=== PATIENT | female | born 1985 | race Caucasian/White ===

== ENCOUNTER → 2017-03-16 | Outpatient (CLI) | payer OTHER ==
[2017-03-16 10:56] LABS: ABSOLUTE EOSINOPHILS # (AUTO) 0.1 10^3/uL (0.0-0.6); ABSOLUTE LYMPHOCYTES (AUTO) 1.6 10^3/uL (0.5-4.7); ABSOLUTE MONOCYTES (AUTO) 0.6 10^3/uL (0.1-1.4); ABSOLUTE NEUT (AUTO) 3.9 10^3/uL (1.7-8.2); BASOPHILS % (AUTO) 0.7 % (0-2); EOSINOPHILS % (AUTO) 1.7 % (0-6); HEMATOCRIT 40.7 % (36.0-47.0); LYMPHOCYTES % (AUTO) 26.5 % (13-45); MEAN CORPUSCULAR HEMOGLOBIN 31.6 pg (27.0-33.4); MEAN CORPUSCULAR HGB CONC 34.5 g/dL (32.0-36.0); MEAN CORPUSCULAR VOLUME 91 fl (80-97); MONOCYTES % (AUTO) 9.1 % (3-13); PLATELET COUNT 283 10^3/uL (150-450); RED BLOOD COUNT 4.45 10^6/uL (3.72-5.28); RED CELL DISTRIBUTION WIDTH 13.5 % (11.5-14.0); TOTAL CELLS COUNTED % (AUTO) 100 %; WHITE BLOOD COUNT 6.2 10^3/uL (4.0-10.5)
[2017-03-16 11:29] LABS: URIC ACID 5.4 mg/dL (2.5-6.2)
[2017-03-16 11:32] LABS: C-REACTIVE PROTEIN < 5.0 mg/L (<10.0)
[2017-03-16 11:48] LABS: ERYTHROCYTE SEDIMENTATION RATE 12 mm/hr (0-20)
[2017-03-18 08:26] LABS: CYCLIC CITRUL PEPTIDE IGG/A AB 4 units (0-19)
== END ==
LOC: OD 09:46
PROVIDERS: ATTEND Physician Assistant
DX: M79.642 Pain in left hand (principal); R60.9 Edema, unspecified; M25.50 Pain in unspecified joint
CPT/HCPCS: 36415; 84443; 84550; 85025; 85652; 86038; 86140; 86200

== ENCOUNTER → 2017-03-16 | Outpatient (CLI) | payer OTHER ==
--- NOTE | 2017-03-18 10:14 | RADIOLOGY REPORT (SQ) ---
EXAM DESCRIPTION: MRI LT UPPER EXTREMITY WITHOUT COMPLETED DATE/TIME: 03/16/2017 11:07 am REASON FOR STUDY: M79.642 PAIN INLEFT HAND M79.642 PAIN IN LEFT HAND COMPARISON: Outside radiographs dated 01/22/2017. TECHNIQUE: Dedicated imaging of the left middle finger. Sequences consist of T1, T2 fat saturated a nd gradient multi plantar. FINDINGS: Marrow signal: Palmar cortical defect in the distal shaft and neck of the proximal phalan x long finger. This may measure just over 1 cm maximal dimension, and correlates with a lytic lesion on radiographs. Associated slightly hyperintense T2, intermediate T1 signal in the adjacent soft ti ssues deep to the flexor tendons, which are otherwise relatively intact. This soft tissue measures u p to 9 mm transverse dimension. Marrow signal in the adjacent bones looks normal. Joints: Grossly maintained without subluxation or dislocation, effusion or erosions. Soft tissues: As above. Soft tissues otherwise look normal. IMPRESSION: 1. Focal palmar cortical defect in the distal aspect proximal phalanx long finger corre lates with a lytic lesion on radiographs. 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 Otherwise, nonspecific however. TECHNICAL DOCUMENTATION: JOB ID: [id number] [email or web address]- All Rights Reserved
== END ==
LOC: RAD 10:20
PROVIDERS: ATTEND Orthopaedic Surgery Hand Surgery
DX: M79.642 Pain in left hand (principal)

== ENCOUNTER 2019-10-15 07:15 | Inpatient (IN) | payer OTHER ==
--- NOTE | 2019-10-08 09:31 | RADIOLOGY REPORT (SQ) ---
EXAM DESCRIPTION: CHEST PA/LATERAL IMAGES COMPLETED DATE/TIME: 10/08/2019 9:13 am REASON FOR STUDY: PRE-OP COMPARISON: None. EXAM PARAMETERS: NUMBER OF VIEWS: two views TECHNIQUE: Digital Frontal and Lateral radiographic views of the chest acquired. RADIATION DOSE: NA LIMITATIONS: none FINDINGS: LUNGS AND PLEURA: No opacities, masses or pneumothorax. No pleural effusion. Minimal biap ical pleural thickening. MEDIASTINUM AND HILAR STRUCTURES: No masses or contour abnormalities. HEART AND VASCULAR STRUCTURES: Heart normal size. No evidence for failure. BONES: No acute findings. Possible pectus excavatum. HARDWARE: None in the chest. OTHER: No other significant finding. IMPRESSION: NO SIGNIFICANT RADIOGRAPHIC FINDING IN THE CHEST. TECHNICAL DOCUMENTATION: JOB ID: [id number] [email or web address]- All Rights Reserved Reading location - IP/workstation name: [email or web address]
[2019-10-08 09:35] LABS: HEMATOCRIT 26.1 % (36.0-47.0); MEAN CORPUSCULAR HEMOGLOBIN 20.3 pg (27.0-33.4); MEAN CORPUSCULAR HGB CONC 30.7 g/dL (32.0-36.0); MEAN CORPUSCULAR VOLUME 66 fl (80-97); PLATELET COUNT 377 10^3/uL (150-450); RED BLOOD COUNT 3.95 10^6/uL (3.72-5.28); RED CELL DISTRIBUTION WIDTH 17.9 % (11.5-14.0); WHITE BLOOD COUNT 4.3 10^3/uL (4.0-10.5)
[2019-10-08 10:00] LABS: APPEARANCE,URINE CLEAR; BILIRUBIN,URINE NEGATIVE (NEGATIVE); COLOR,URINE YELLOW; GLUCOSE, URINE NEGATIVE (NEGATIVE); KETONES,URINE NEGATIVE (NEGATIVE); LEUKOCYTE ESTERASE,URINE TRACE (NEGATIVE); NITRITE,URINE NEGATIVE (NEGATIVE); PROTEIN,URINE NEGATIVE (NEGATIVE); UROBILINOGEN,URINE NEGATIVE mg/dL (<2.0)
[2019-10-08 10:03] LABS: ANION GAP 7 (5-19); BLOOD UREA NITROGEN 13 mg/dL (7-20); CALCIUM 8.9 mg/dL (8.4-10.2); CARBON DIOXIDE 23 mmol/L (22-30); CHLORIDE 106 mmol/L (98-107); GLUCOSE 99 mg/dL (75-110); POTASSIUM 4.6 mmol/L (3.6-5.0)
--- NOTE | 2019-10-08 19:12 | EKG REPORT ---
SEVERITY:- NORMAL ECG - SINUS RHYTHM : Confirmed by: Checo Pride 08-Oct-2019 19:12:01
[2019-12-26 10:20] LABS: APPEARANCE,URINE SLIGHTLY-CLOUDY; BILIRUBIN,URINE NEGATIVE (NEGATIVE); COLOR,URINE YELLOW; GLUCOSE, URINE NEGATIVE (NEGATIVE); KETONES,URINE NEGATIVE (NEGATIVE); LEUKOCYTE ESTERASE,URINE NEGATIVE (NEGATIVE); NITRITE,URINE NEGATIVE (NEGATIVE); PROTEIN,URINE 30 mg/dL (NEGATIVE); URINE SPECIFIC GRAVITY 1.018; UROBILINOGEN,URINE NEGATIVE mg/dL (<2.0)
[2019-12-26 10:35] LABS: HEMATOCRIT 36.7 % (36.0-47.0); HEMOGLOBIN 12.3 g/dL (12.0-15.5); MEAN CORPUSCULAR HEMOGLOBIN 28.1 pg (27.0-33.4); MEAN CORPUSCULAR HGB CONC 33.7 g/dL (32.0-36.0); MEAN CORPUSCULAR VOLUME 83 fl (80-97); PLATELET COUNT 277 10^3/uL (150-450); WHITE BLOOD COUNT 5.1 10^3/uL (4.0-10.5)
[2019-12-26 10:57] LABS: ANION GAP 8 (5-19); BLOOD UREA NITROGEN 15 mg/dL (7-20); CALCIUM 9.1 mg/dL (8.4-10.2); CARBON DIOXIDE 24 mmol/L (22-30); CHLORIDE 105 mmol/L (98-107); GLUCOSE 89 mg/dL (75-110); POTASSIUM 4.8 mmol/L (3.6-5.0)
[2019-12-31] MEDS ORDERED: LIDOCAINE 0.5% INJ-PF (5 MG/ML) 50 ML SDV SUBCUT PRN (05:00)
[2019-12-31] MEDS ORDERED: LACTATED RINGERS 1000 ML IV PRN (05:00)
[2019-12-31] MEDS ORDERED: CEFAZOLIN 1 GM/D5W RTU 1 GM/50 ML RTUPB IV PRN (05:00)
[2019-12-31] MEDS ORDERED: CEFAZOLIN 1 GM/D5W RTU 1 GM/50 ML RTUPB IV ONE (05:02)
[2019-12-31] MEDS ORDERED: FENTANYL CITRATE INJ/PF 100 MCG/2 ML AMPUL ONE (06:52)
[2019-12-31] MEDS ORDERED: PROMETHAZINE HCL INJ 25 MG/1 ML VIAL ONE (06:52)
[2019-12-31] MEDS ORDERED: ONDANSETRON HCL INJ/PF 4 MG/2 ML SDV ONE (06:53)
[2019-12-31] MEDS ORDERED: HYDROMORPHONE HCL INJ/PF 2 MG/ML AMPULE ONE (06:53)
[2019-12-31] MEDS ORDERED: PROPOFOL INJ 200 MG/20 ML VIAL IV ONE (06:53)
[2019-12-31] MEDS ORDERED: DEXAMETHASONE SOD PHOSPHATE INJ 4 MG/1 ML VIAL ONE (06:53)
[2019-12-31] MEDS ORDERED: MIDAZOLAM 2 MG/2 ML INJ ONE (06:53)
[2019-12-31] MEDS ORDERED: BUPIVACAINE INJ/PF LIPOSOME/PF 266 MG/20 ML SDV ONE (07:03)
[2019-12-31] MEDS ORDERED: METOCLOPRAMIDE HCL INJ/PF 10 MG/2 ML SDV ONE (07:10)
[2019-12-31] MEDS ORDERED: FENTANYL CITRATE INJ/PF 100 MCG/2 ML AMPUL IV PRN ×3 (07:30)
[2019-12-31] MEDS ORDERED: MEPERIDINE HCL/PF INJ 25 MG/1 ML DISP.SYRIN IV PRN (07:30)
[2019-12-31] MEDS ORDERED: PROMETHAZINE HCL INJ 25 MG/1 ML VIAL IV PRN (07:30)
[2019-12-31] MEDS ORDERED: DIPHENHYDRAMINE HCL 50 MG/ML VIAL IV PRN (07:30)
[2019-12-31] MEDS ORDERED: MORPHINE SULFATE 10 MG/ML INJ IV PRN (07:30)
--- NOTE | 2019-12-31 08:56 | Operative Report ---
Operative Report DATE OF SURGERY: 12/31/19 PREOPERATIVE DIAGNOSIS: Chronic pelvic pain, history of endometriosis, history of BALBINA Pap, pelvic adhesions, desires definitive therapy POSTOPERATIVE DIAGNOSIS: Same OPERATION: Total abdominal hysterectomy, bilateral oophorectomy, history of previous salpingectomy SURGEON: OLY CHUA ANESTHESIA: GA TISSUE REMOVED OR ALTERED: Cervix uterus both ovaries COMPLICATIONS: None ESTIMATED BLOOD LOSS: 25 mL INTRAOPERATIVE FINDINGS: Densely adherent bladder on the anterior cervix, bilateral normal-appearing ovaries, absent tubes PROCEDURE: INDICATIONS FOR PROCEDURE: The patient had unreasonable uterine bleeding and pelvic pain despite multiple o utpatient managements. Previous records have been obtained and reviewed. She desired attempt at definitive therapy. The usual risks of bleeding, infection, anesthesia, and damage to organs or tissues was discussed with the patient who understood, and she desires attempt at definitive therapy. No guarantees or warranties regarding future pain relief been made with the patient. She is well aware of the need for for hormone replacement therapy after removal of her ovaries. She is well aware of other methods of treatment for endometriosis of her desires surgical relief PROCEDURE: The patient was taken to the operating room. The patient was placed in The supine position adequate anesthesia was ascertained. She was prepped and draped in the usual manner for a abdominal hysterectomy . EUA was performed after a time out was performed and antibiotics had been given. Bladder was drained under sterile technique. Via Pfannenstiel type incision extending the subcutaneous fat and fascia the peritoneum and peritoneum was entered without difficulty and the above-noted findings were appreciated. The contents were packed out the pelvis and her self-retaining retractor was placed. Ligaments were identified bilaterally suture ligated and cauterized. The bladder was freed from the anterior portion of the uterus with sharp and blunt dissection. Ago pelvic ligaments bilaterally were cauterized and free tied from the ovaries and the dissection continued inferiorly down to the uterine vessels using LigaSure advanced device. The uterine uterine arteries were suture ligated as well as cauterized and dissection continued down to the level of the uterosacral ligaments which were crossclamped cut and held. The bladder was dissected and advanced sequentially just during this aspect of pro cedure. The vagina was entered. The vagina was then closed with interrupted #1 chromic catgut interrupted fashion the cervix and uterus were handed off the operative field. The pedicles were noted to be dry. The ureters were both out of the operative field. The ovaries were visually normal. Good hemostasis was noted. The abdomen was irrigated. The bladder was drained of a small amount of clear urine at the completion of the case. The fascia was closed with double-stranded PDS #1 and skin was approximated approximated skin holli. All sponge and needle counts were correct.
[2019-12-31] MEDS ORDERED: ACETAMINOPHEN 1,000 MG/100 ML RTUPB IV ONE ×2 (09:24→10:30)
[2019-12-31] MEDS ORDERED: MORPHINE INJ 4 MG DOSE (EDIT ROUTE) INJ PRN (09:30)
[2019-12-31] MEDS ORDERED: PROMETHAZINE HCL INJ 25 MG/1 ML VIAL IM PRN (09:30)
[2019-12-31] MEDS ORDERED: MORPHINE INJ 8 MG DOSE IM PRN (09:30)
[2019-12-31] MEDS ORDERED: NEOSTIGMINE METHYLSULFATE 10 MG/10 ML VIAL ONE (09:37)
[2019-12-31] MEDS ORDERED: ROCURONIUM BROMIDE INJ 50 MG/5 ML VIAL IV ONE (09:37)
[2019-12-31] MEDS ORDERED: GLYCOPYRROLATE 1 MG/5 ML VIAL ONE (09:37)
[2019-12-31] MEDS ORDERED: SUCCINYLCHOLINE CHLORIDE INJ 200 MG/10 ML VIAL ONE (09:37)
[2019-12-31] MEDS ORDERED: KETOROLAC TROMETHAMINE 60 MG/2 ML SDV ONE (09:37)
[2019-12-31] MEDS ORDERED: OXYCODONE-ACETAMINOPHEN 5-325 MG TABLET ONE (09:43)
[2019-12-31] MEDS: OXYCODONE-ACETAMINOPHEN 5-325 MG TABLET PO PRN ×3 (10:36→23:29)
[2019-12-31] MEDS: MORPHINE INJ 6 MG DOSE (EDIT ROUTE) INJ PRN ×2 (11:56→14:48)
[2019-12-31] MEDS: CEFAZOLIN 1 GM RTU (EDIT START TIME) IV SCH ×2 (11:57→18:31)
[2019-12-31] MEDS: IBUPROFEN 800 MG TABLET PO SCH ×2 (13:16→21:41)
[2020-01-01] MEDS: IBUPROFEN 800 MG TABLET PO SCH (05:21)
[2020-01-01 08:04] LABS: HEMATOCRIT 33.8 % (36.0-47.0); HEMOGLOBIN 11.5 g/dL (12.0-15.5); MEAN CORPUSCULAR HEMOGLOBIN 28.7 pg (27.0-33.4); MEAN CORPUSCULAR HGB CONC 34.2 g/dL (32.0-36.0); MEAN CORPUSCULAR VOLUME 84 fl (80-97); PLATELET COUNT 262 10^3/uL (150-450); RED BLOOD COUNT 4.03 10^6/uL (3.72-5.28); RED CELL DISTRIBUTION WIDTH 26.6 % (11.5-14.0); WHITE BLOOD COUNT 10.6 10^3/uL (4.0-10.5)
[2020-01-01 08:34] VITALS: BP 102/46
--- NOTE | 2020-02-01 08:20 | PDOC DISCHARGE SUMMARY ---
Impression - Admit/DC Date/PCP Admission Date/Primary Care Provider: 12/31/19 05:21 LOVE HERRING DO Discharge Date: 01/01/20 - Additional Information Resuscitation Status: Full Code Discharge Diet: As Tolerated Discharge Activity: Activity As Tolerated, No Lifting Over 10 Pounds, No Lifting/Push/Pulling, Pelvic Rest, Slowly Increase Activity, No tub bath Referrals: LOVE HERRING DO [Primary Care Provider] - OLY CHUA MD [EMERITUS] - 01/07/20 11:00 am (CALL THE OFFICE OF ANY QUESTIONS OR CONCERNS) Home Medications: Cyanocobalamin (Vitamin B-12) [Vitamin B-12 1000 Mcg Tablet] 1,000 mcg PO DAILY 12/31/19 Mineral Oil/Petrolatum,White [Genteal Tears Severe 3%-94%] 1 applic OU QHS 12/31/19 Olopatadine HCl [Pazeo] 1 drop OU QAM 12/31/19 History of Present Illiness History of Present Illness: MALIK ALEXIS is a 34 year old female Physical Exam - Physical Exam Vital Signs: Temp Pulse Resp BP Pulse Ox 98.4 F 72 16 102/46 L 100 01/01/20 08:29 01/01/20 08:29 01/01/20 08:29 01/01/20 08:29 01/01/20 08:29 Results Laboratory Results: WBC 10.6 10^3/uL (4.0-10.5) H 01/01/20 06:47 RBC 4.03 10^6/uL (3.72-5.28) 01/01/20 06:47 Hgb 11.5 g/dL (12.0-15.5) L 01/01/20 06:47 Hct 33.8 % (36.0-47.0) L 01/01/20 06:47 MCV 84 fl (80-97) 01/01/20 06:47 MCH 28.7 pg (27.0-33.4) 01/01/20 06:47 MCHC 34.2 g/dL (32.0-36.0) 01/01/20 06:47 RDW 26.6 % (11.5-14.0) H 01/01/20 06:47 Plt Count 262 10^3/uL (150-450) 01/01/20 06:47 Sodium 137.1 mmol/L (137-145) 12/26/19 09:30 Potassium 4.8 mmol/L (3.6-5.0) 12/26/19 09:30 Chloride 105 mmol/L (98-107) 12/26/19 09:30 Carbon Dioxide 24 mmol/L (22-30) 12/26/19 09:30 Anion Gap 8 (5-19) 12/26/19 09:30 BUN 15 mg/dL (7-20) 12/26/19 09:30 Creatinine 0.87 mg/dL (0.52-1.25) 12/26/19 09:30 Est GFR ( Amer) > 60 (>60) 12/26/19 09:30 Est GFR (MDRD) Non-Af > 60 (>60) 12/26/19 09:30 Glucose 89 mg/dL (75-110) 12/26/19 09:30 Calcium 9.1 mg/dL (8.4-10.2) 12/26/19 09:30 Urine Color YELLOW 12/26/19 08:40 Urine Appearance SLIGHTLY-CLOUDY 12/26/19 08:40 Urine pH 6.0 (5.0-9.0) 12/26/19 08:40 Ur Specific [place] 1.018 12/26/19 08:40 Urine Protein 30 mg/dL (NEGATIVE) H 12/26/19 08:40 Urine Glucose (UA) NEGATIVE mg/dL (NEGATIVE) 12/26/19 08:40 Urine Ketones NEGATIVE mg/dL (NEGATIVE) 12/26/19 08:40 Urine Blood LARGE (NEGATIVE) H 12/26/19 08:40 Urine Nitrite NEGATIVE (NEGATIVE) 12/26/19 08:40 Urine Bilirubin NEGATIVE (NEGATIVE) 12/26/19 08:40 Urine Urobilinogen NEGATIVE mg/dL (<2.0) 12/26/19 08:40 Ur Leukocyte Esterase NEGATIVE (NEGATIVE) 12/26/19 08:40 Urine WBC (Auto) 26 /HPF 12/26/19 08:40 Urine RBC (Auto) >182 /HPF 12/26/19 08:40 Squamous Epi Cells Auto 4 /HPF 10/08/19 08:10 Urine Mucus (Auto) RARE /LPF 12/26/19 08:40 Urine Ascorbic Acid NEGATIVE (NEGATIVE) 12/26/19 08:40 Urine HCG, Qual NEGATIVE (NEGATIVE) 12/31/19 05:30 COVID-19 Source See comment 12/26/19 09:35 COVID-19 (TRACEY) Not Detected (Not Detect) 12/26/19 09:35 Blood Type O NEGATIVE 12/26/19 09:30 Antibody Screen NEGATIVE 12/26/19 09:30 Impressions: Chest X-Ray 10/08/19 09:01 IMPRESSION: NO SIGNIFICANT RADIOGRAPHIC FINDING IN THE CHEST. Stroke Is this a Stroke Patient?: No Acute Heart Failure Is this a Heart Failure Patient?: No
== END 2020-01-01 09:20 | disposition home or self-care (01) | DRG 743 ==
LOC: INOR 12-31 05:21 → 2N 12-31 09:54
PROVIDERS: ADMIT Specialist; ATTEND Specialist
PROC: 0UT20ZZ Resection of Bilateral Ovaries, Open Approach (ICD-10-PCS; 2019-12-31)
PROC: 0UT90ZZ Resection of Uterus, Open Approach (ICD-10-PCS; principal; 2019-12-31 07:15)
DX: N80.3 Endometriosis of pelvic peritoneum (principal); F32.9 Major depressive disorder, single episode, unspecified; F41.9 Anxiety disorder, unspecified; N93.9 Abnormal uterine and vaginal bleeding, unspecified; D64.9 Anemia, unspecified; Z11.59 Encounter for screening for other viral diseases; Z91.040 Latex allergy status
CPT/HCPCS: 36415; 71046; 80048; 81001; 81025; 840; 85027; 86850; 86900; 86901; 87635; 88307; 93005; 93010; 94799; C1758; C9290; C9803; J0131; J0330; J0690; J1100; J1170; J1885; J2250; J2270; J2405; J2550; J2704; J2710; J2765; J3010; J3490; J7120